=== PATIENT | female | born 1995 | race Caucasian/White ===

== ENCOUNTER 2017-02-19 09:30 | Emergency (ER) | payer OTHER ==
[~2017-02-19] VITALS: Ht 162.6 cm; Wt 67.0 kg
[~2017-02-19 09:30] MED LIST: BCPILLS PO
[2017-02-19 09:40] VITALS: TEMP 36.7; Ht 162.6 cm; Wt 67.0 kg
[2017-02-19] MEDS ORDERED: IBUPROFEN 600 MG TAB PO STA (10:21)
[2017-02-19] MEDS ORDERED: CEPH500C PO (10:26)
[2017-02-19] MEDS ORDERED: CEPHALEXIN MONOHYDRATE 250 MG CAP PO ONE (10:30)
[2017-02-19 10:35] VITALS: BP 109/64; PULSE 73; O2SAT 99
--- NOTE | 2017-02-19 14:27 | EMERGENCY ROOM VISIT NOTE ---
History Report prepared by Rudy: Cindi Varner Under the Supervision of: Dr. Edis Cerna M.D. First contact with patient: 09:53 Chief Complaint: FINGER PAIN Stated Complaint: LEFT FINGER SPLINTER History of Present Illness The patient is a 21 year old female who presents to the Emergency Room with complaints of worsening left middle finger pain that started last night. She describes the pain as throbbing. The patient works at the [employer] and states that she got a splinter from the wood when she was reaching for ice. She states that the splinter is under her nail. She is also experiencing numbness in the tip of her finger along with worsening edema in her finger. She has not putting anything on her finger in an attempt to relieve the pain and she has not tried to remove the splinter. Pt denies nausea, vomiting, other extremity pain, weakness, active bleeding, or other complaints. Source of History: patient Onset: last night Position: finger(s) (left middle) Quality: other (throbbing) Timing: worsening Associated Symptoms: + numbness (left middle finger) Note: left middle finger edema Review of Systems See HPI for pertinent positives and negatives. A total of six systems were reviewed and were otherwise negative. Past Medical & Surgical Medical Problems: (1) Acute Pharyngitis (2) Acute Tonsillitis (3) No Known Active Medical Problems Family History FHx: cancer FHx: heart disease Social History Smoking Status: Never Smoker Marital Status: single Housing Status: lives with friends Occupation Status: [employer] student Current/Historical Medications Scheduled Control Pills ( Control Pills), 1 TAB PO DAILY Cephalexin Monohydrate (Keflex), 500 MG PO QID Allergies Coded Allergies: Sulfa Antibiotics (Unverified Allergy, Unknown, ., 02/19/17) Physical Exam Vital Signs Date Time Temp Pulse Resp B/P (MAP) Pulse Ox O2 Delivery O2 Flow Rate FiO2 02/19/17 10:35 73 18 109/64 99 Room Air 02/19/17 09:40 36.7 71 16 107/71 97 Physical Exam GENERAL: Awake, alert, well-appearing, in no distress HENT: Normocephalic, atraumatic. Oropharynx unremarkable. EYES: Normal conjunctiva. Sclera non-icteric. UPPER EXTREMITIES: Foreign body in left middle finger under the with edema and erythema to the distal finger. Splinter noted under the nail. NEURO: Normal sensorium. No sensory or motor deficits noted. SKIN: No rash or jaundice noted. Medical Decision & Procedures Medications Administered Medications (Trade) Dose Ordered Sig/Omega Route Start Time Stop Time Status Last Admin Dose Admin Cephalexin Monohydrate (Keflex Cap) 500 mg NOW ONCE PO 02/19/17 10:30 02/19/17 10:31 DC 02/19/17 10:33 500 MG Ibuprofen (Motrin Tab) 600 mg NOW STAT PO 02/19/17 10:21 02/19/17 10:24 DC 02/19/17 10:33 600 MG Procedure Foreign Body Removal: Skin was prepped with chlorhexidine. 18-gauge needle utilized to remove splinter. Patient tolerated procedure well. Small amount of pus expressed upon splinter removal. Bacitracin and bandage applied. ED Course 1003: The patient was evaluated in room A2. A complete history and physical exam was performed. 1007: I removed the foreign body from the patient's finger at this time. Please refer to the procedure note above for further details. 1016: After foreign body removal, I discussed the results and discharge instructions with the patient. She verbalized understanding and agreement. The patient is ready for discharge. 1021: Ordered Motrin Tab 600 mg PO 1030: Ordered Keflex Cap 500 mg PO Medical Decision Medication Reconciliation: I attest that I have personally reviewed the patient' s current medication list Blood pressure screening: Patient was found to have normal blood pressure on screening and does not require follow-up. The patient was evaluated. She had a splinter under the nail. She had the earliest signs of a sialitis to the distal aspect of her finger. The splinter was removed as above. No signs for fracture or bony injury. She was given Keflex. Will be placed on a short course of Keflex. She should do well with this. If she worsens in any way she will be back. Conservative management was discussed. The patient felt comfortable. She was discharged. The patient was educated about the findings as listed above. All questions were answered and the patient was pleased with the treatment. Return instructions were outlined and the patient was discharged in stable condition. The patient was referred to her PCP for follow-up for a recheck of the current condition. Impression Primary Impression: Foreign body of left middle finger Additional Impression: Cellulitis of left middle finger Scribe Attestation The scribe's documentation has been prepared under my direction and personally reviewed by me in its entirety. I confirm that the note above accurately reflects all work, treatment, procedures, and medical decision making performed by me. Departure Information Dispostion Home / Self-Care Prescriptions Cephalexin Monohydrate (Keflex) 500 Mg Cap 500 MG PO QID, #28 CAP Prov: Edis Cerna MD 02/19/17 Referrals Rick Muniz M.D. (PCP) Forms HOME CARE DOCUMENTATION FORM, IMPORTANT VISIT INFORMATION, WORK / SCHOOL INSTRUCTIONS Patient Instructions My [facility] Additional Instructions Bacitracin and bandage once daily to the finger for the next 2-3 days. Cephalexin(Keflex) 500mg: Take one pill four times daily for 7 days for your skin infection. All antibiotics can cause diarrhea. If this occurs and you feel worse or it does not resolve in 1-2 days follow up with your doctor or return to the Emergency Department as this could be signs of serious underlying problems. Any medication can cause an allergic reaction, stop the pills immediately and return to the ER for rash, hives, breathing difficulties, or swelling. Ibuprofen(Motrin, Advil) may be used for fever or pain. Use 600mg every six hours as needed. Take with food. Avoid using more than 2400mg in a 24 hour period. Do not use 2400mg per day for more than three consecutive days without physician direction. Prolonged inappropriate use can lead to stomach upset or ulcers. (AND/OR) Acetaminophen(Tylenol) may be used for fever or pain. Use 1000mg every six hours as needed. Avoid using more than 4000mg in a 24 hour period. Warm compresses to the affected area 4 times daily for 15-20 minutes. Rest and drink plenty of fluids. Continue current medications. Return to the ER for severe pain, persistent fevers, spreading redness, or any worsening of your condition. Follow up with your primary physician for a recheck of the current condition. Problem Qualifiers
== END 2017-02-19 10:37 | disposition home or self-care (01) ==
LOC: C.EDB 09:32 → C.EDA 10:37
DX: S60.453A Superficial foreign body of left middle finger, initial encounter (principal); L03.012 Cellulitis of left finger; W45.8XXA Other foreign body or object entering through skin, initial encounter; Y93.89 Activity, other specified; Y99.0 Civilian activity done for income or pay; Y92.511 Restaurant or cafe as the place of occurrence of the external cause

== ENCOUNTER → 2017-08-28 | Outpatient (CLI) | payer OTHER | END | disposition home or self-care (01) | LOC: C.PAPS 09:30 | PROVIDERS: ATTEND Obstetrics & Gynecology | DX: Z12.4 Encounter for screening for malignant neoplasm of cervix (principal) ==